=== PATIENT | male | born 1960 | race Caucasian/White ===

== ENCOUNTER 2022-03-19 01:40 | Emergency (ER) | payer SELFPAY ==
[2022-03-19] MEDS ORDERED: ALPRAZolam 1 MG TABLET PO PRN (02:01)
[2022-03-19 02:02] VITALS: BP 162/99; PULSE 119; TEMP 97.6; BMI 26.6
[2022-03-19] MEDS ORDERED: ALPRAZolam 0.25 MG TABLET ONE (02:11)
== END 2022-03-19 03:03 | disposition home or self-care (01) ==
LOC: JER 01:40
DX: F41.9 Anxiety disorder, unspecified (principal)
CPT/HCPCS: 99283-25